=== PATIENT | male | born 1940 | race Caucasian/White ===

== ENCOUNTER 2018-09-28 13:28 | Emergency (ER) | payer MEDICARE, BC ==
[2018-09-28 15:15] LABS: ANION GAP 13.7; CHLORIDE,CL 105 mmol/L (101-111); SODIUM,NA 139 mmol/L (135-145)
[2018-09-28 17:23] VITALS: BP 142/82
--- NOTE | 2018-09-28 21:25 | EDM.PDOC ---
ED HPI GENERAL MEDICAL PROBLEM - General Chief Complaint: Respiratory Problem Stated Complaint: RESPIRATORY PROBLEMS Time Seen by Provider: 09/28/18 14:00 - History of Present Illness INITIAL COMMENTS - FREE TEXT/NARRATIVE: 78 year old male with hx of COPD, stents, pacer, presents with SOB x 1 month with worsening over the last week. No fevers, chills. "Im fine if I am sitting and not SOB; but as soon as I walk I get very SOB". Last night had small bout of CP when he was walking accompanied by SOB; then sat down rested and it went away. No CP since. Hx of colonoscopy with polyp removal 2 yrs ago. He has been given blood for anemia and is on iron. Dark stools which he felt was from the iron. Dr. 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 - Related Data Allergies Allergy/AdvReac Type Severity Reaction Status Date / Time No Known Allergies Allergy Verified 09/28/18 13:59 Home Meds: Home Meds Nitroglycerin [Nitrostat] 1 tab SL ASDIRECTED PRN 07/22/15 [History] Simvastatin 1 tab PO DAILY 07/22/15 [History] Albuterol [Ventolin HFA] 2 puff INH ASDIRECTED PRN 09/28/18 [History] Apixaban [Eliquis] 2.5 mg PO BID 09/28/18 [History] Aspirin [Ecotrin] 81 mg PO DAILY 09/28/18 [History] Bumetanide 2 mg PO DAILY 09/28/18 [History] DULoxetine [Cymbalta] 30 mg PO DAILY 09/28/18 [History] Fluticasone/Umeclidin/Vilanter [Trelegy Ellipta 100-62.5-25] 1 puff INH DAILY [History] Metoprolol Tartrate 25 mg PO BID 09/28/18 [History] Montelukast [Singulair] 5 mg PO DAILY 09/28/18 [History] Omeprazole 20 mg PO DAILY 09/28/18 [History] Potassium Chloride 20 meq PO BID 09/28/18 [History] Past Medical History HEENT History: Reports: None, Other (See Below) Other HEENT History: chronic otitis media R) ear Cardiovascular History: Reports: CAD, High Cholesterol, Hypertension, Pacemaker , Stents Other Cardiovascular History: Sick sinus syndrome Respiratory History: Reports: None Gastrointestinal History: Reports: Colon Polyp, GI Bleed Other Gastrointestinal History: Guillian Tsaile syndrome, duodenal ulcer Genitourinary History: Reports: None Musculoskeletal History: Reports: None, Arthritis, Back Pain, Chronic, Osteoarthritis Neurological History: Reports: Head Trauma Other Neuro History: spinal stenosis of lumbar region. spinal stenosis of thoracic region Psychiatric History: Reports: None Endocrine/Metabolic History: Reports: None Hematologic History: Reports: Anemia Immunologic History: Reports: None Oncologic (Cancer) History: Reports: None Dermatologic History: Reports: None - Infectious Disease History Infectious Disease History: Reports: Chicken Pox - Past Surgical History Head Surgeries/Procedures: Reports: None HEENT Surgical History: Reports: Other (See Below) Cardiovascular Surgical History: Reports: Carotid Stents, Pacer Musculoskeletal Surgical History: Reports: Knee Replacement Social & Family History - Family History Family Medical History: Noncontributory - Tobacco Use Smoking Status *Q: Former Smoker Years of Tobacco use: 50 Packs/Tins Daily: 0.5 Used Tobacco, but Quit: Yes Month/Year Tobacco Last Used: may Second Hand Smoke Exposure: No - Caffeine Use Caffeine Use: Reports: Coffee, Soda - Recreational Drug Use Recreational Drug Use: No - Living Situation & Occupation Living situation: Reports: , with Spouse Occupation: Retired ED ROS GENERAL - Review of Systems Review Of Systems: ROS reveals no pertinent complaints other than HPI. Respiratory: Reports: Shortness of Breath, Other (Mild cough; no signs of infection or sinus congestion. ) ED EXAM, GENERAL - Physical Exam Exam: See Below Exam Limited By: No Limitations General Appearance: Alert, WD/WN, No Apparent Distress Respiratory/Chest: Other (Decrease lungs sounds on the left base) Cardiovascular: Normal Peripheral Pulses, Regular Rate, Rhythm, No Edema, No Murmur Peripheral Pulses: 3+: Radial (L), Radial (R) GI/Abdominal: Normal Bowel Sounds, Soft, Non-Tender, No Organomegaly, No Distention, Other (No abdominal pain with palpation) Extremities: Normal Inspection, Normal Range of Motion, Non-Tender, No Pedal Edema Neurological: Alert, Oriented Skin Exam: Warm, Dry, Intact, Normal Color, No Rash Lymphatic: No Adenopathy EKG INTERPRETATION Rhythm: NSR (SR 1 degree AVB) Course - Vital Signs Text/Narrative:: cbc - HGB 6.2 and HCT 21.2 CMP nml except creat 1.5 UA negative Troponin Neg + rectal Hemoccult Dark stool Considering his sob, anemia and dark stools discussed with His PCP Dr. Noble whom came to see patient in the ER. Dr. 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 called and discussed with [facility] and accepting hospitalist there is Dr. Alberto. Patient refuses EMS transfer and will go by private vehicle by his family. VSS are stable for transfer. Last Recorded V/S: Last Vital Signs Temp 36.6 C 09/28/18 17:21 Pulse 83 09/28/18 17:21 Resp 16 09/28/18 17:21 BP 142/82 H 09/28/18 17:21 Pulse Ox 96 09/28/18 17:21 - Orders/Labs/Meds Orders: Active Orders 24 hr Category Date Time Status EKG 12 Lead [EKG Documentation Completion] [RC] STAT Care 09/28/18 14:47 Active Chest 2V [CR] Urgent Exams 09/28/18 14:38 Taken Labs: Laboratory Tests 09/28/18 09/28/18 09/28/18 Range/Units 14:47 14:47 14:47 WBC 6.0 (5.0-10.0) 10^3/uL RBC 2.00 L (4.6-6.2) 10^6/uL Hgb 6.2 L* D (14.0-18.0) g/dL Hct 21.2 L (40.0-54.0) % MCV 106.0 H D (80-100) fL MCH 31.0 (27.0-34.0) pg MCHC 29.2 L (33.0-35.0) g/dL Plt Count 219 D (150-450) 10^3/uL Neut % (Auto) 64.8 (42.2-75.2) % Lymph % (Auto) 20.3 L (20.5-50.1) % [place] % (Auto) 12.3 H (2-8) % Eos % (Auto) 2.3 (1.0-3.0) % Baso % (Auto) 0.3 (0.0-1.0) % Sodium 139 (135-145) mmol/L Potassium 3.7 (3.6-5.0) mmol/L Chloride 105 (101-111) mmol/L Carbon Dioxide 24.0 (21.0-31.0) mmol/L Anion Gap 13.7 BUN 44 H D (7-18) mg/dL Creatinine 1.5 H (0.6-1.3) mg/dL Est Cr Clr Drug Dosing 37.33 mL/min Estimated GFR (MDRD) 45 BUN/Creatinine Ratio 29.33 Glucose 99 (74-105) mg/dL Calcium 8.1 L (8.4-10.2) mg/dl Total Bilirubin 1.5 H (0.2-1.0) mg/dL AST 21 (10-42) IU/L ALT 15 (10-60) IU/L Alkaline Phosphatase 54 (42-121) IU/L Troponin I < 0.02 (0.00-0.02) ng/ml B-Natriuretic Peptide (0-100) pg/ml Total Protein 6.0 L (6.7-8.2) g/dl Albumin 3.1 L (3.2-5.5) g/dl Globulin 2.9 Albumin/Globulin Ratio 1.07 Urine Color (YELLOW) Urine Appearance (CLEAR) Urine pH (5.0-9.0) Ur Specific [place] (1.005-1.030) Urine Protein (NEGATIVE) Urine Glucose (UA) (NEGATIVE) Urine Ketones (NEGATIVE) Urine Occult Blood (NEGATIVE) Urine Nitrite (NEGATIVE) Urine Bilirubin (NEGATIVE) Urine Urobilinogen (0.2-1.0) mg/dL Ur Leukocyte Esterase (NEGATIVE) Blood Type A POSITIVE Gel Antibody Screen Negative 09/28/18 09/28/18 Range/Units 15:05 16:30 WBC (5.0-10.0) 10^3/uL RBC (4.6-6.2) 10^6/uL Hgb (14.0-18.0) g/dL Hct (40.0-54.0) % MCV (80-100) fL MCH (27.0-34.0) pg MCHC (33.0-35.0) g/dL Plt Count (150-450) 10^3/uL Neut % (Auto) (42.2-75.2) % Lymph % (Auto) (20.5-50.1) % [place] % (Auto) (2-8) % Eos % (Auto) (1.0-3.0) % Baso % (Auto) (0.0-1.0) % Sodium (135-145) mmol/L Potassium (3.6-5.0) mmol/L Chloride (101-111) mmol/L Carbon Dioxide (21.0-31.0) mmol/L Anion Gap BUN (7-18) mg/dL Creatinine (0.6-1.3) mg/dL Est Cr Clr Drug Dosing mL/min Estimated GFR (MDRD) BUN/Creatinine Ratio Glucose (74-105) mg/dL Calcium (8.4-10.2) mg/dl Total Bilirubin (0.2-1.0) mg/dL AST (10-42) IU/L ALT (10-60) IU/L Alkaline Phosphatase (42-121) IU/L Troponin I (0.00-0.02) ng/ml B-Natriuretic Peptide 550 H (0-100) pg/ml Total Protein (6.7-8.2) g/dl Albumin (3.2-5.5) g/dl Globulin Albumin/Globulin Ratio Urine Color Yellow (YELLOW) Urine Appearance Clear (CLEAR) Urine pH 5.5 (5.0-9.0) Ur Specific [place] 1.015 (1.005-1.030) Urine Protein Negative (NEGATIVE) Urine Glucose (UA) Negative (NEGATIVE) Urine Ketones Negative (NEGATIVE) Urine Occult Blood Negative (NEGATIVE) Urine Nitrite Negative (NEGATIVE) Urine Bilirubin Negative (NEGATIVE) Urine Urobilinogen 1.0 (0.2-1.0) mg/dL Ur Leukocyte Esterase Negative (NEGATIVE) Blood Type Gel Antibody Screen - Radiology Interpretation Free Text/Narrative:: Xray small left pleural effusion. Departure - Departure Time of Disposition: 18:00 Disposition: DC/Tfer to Acute Hospital 02 Condition: Fair Clinical Impression: Anemia, Dark stools, Occult blood in stools, Short of breath on exertion, History of coronary artery disease, History of COPD - Discharge Information *PRESCRIPTION DRUG MONITORING PROGRAM REVIEWED*: Not Applicable *COPY OF PRESCRIPTION DRUG MONITORING REPORT IN PATIENT PRABHA: Not Applicable Referrals: PCP,None [Primary Care Provider] - Forms: ED Department Discharge - My Orders Last 24 Hours: My Active Orders 09/28/18 14:38 Chest 2V [CR] Urgent 09/28/18 14:47 EKG 12 Lead [EKG Documentation Completion] [RC] STAT - Assessment/Plan Last 24 Hours: My Active Orders 09/28/18 14:38 Chest 2V [CR] Urgent 09/28/18 14:47 EKG 12 Lead [EKG Documentation Completion] [RC] STAT
== END 2018-09-28 17:53 ==
LOC: DL.ED 13:28
DX: K92.1 Melena (principal); D64.9 Anemia, unspecified; J44.9 Chronic obstructive pulmonary disease, unspecified; Z79.899 Other long term (current) drug therapy; Z79.82 Long term (current) use of aspirin; Z79.01 Long term (current) use of anticoagulants; I25.10 Atherosclerotic heart disease of native coronary artery without angina pectoris; E78.00 Pure hypercholesterolemia, unspecified; I10 Essential (primary) hypertension; Z95.0 Presence of cardiac pacemaker; Z95.5 Presence of coronary angioplasty implant and graft; Z87.891 Personal history of nicotine dependence
CPT/HCPCS: 36415; 71046; 80053; 81003; 82272; 83880; 84484; 85025; 86850; 86900; 86901; 93005; 99285-25

== ENCOUNTER 2021-07-20 06:55 | Day surgery (SDC) | payer MEDICARE, BC ==
[2021-07-20] MEDS ORDERED: Dexamethasone 4 MG/ML SDV IV ONE (06:56)
[2021-07-20] MEDS ORDERED: Sodium Chloride 0.9% 10 ML Syringe IV ONE (06:56)
[2021-07-20] MEDS ORDERED: Midazolam 1 MG/ML 2 ML SDV IV ONE (06:56)
[2021-07-20] MEDS ORDERED: Ondansetron 4 MG/2 ML SDV IVPUSH PRN (07:00)
[2021-07-20] MEDS ORDERED: Proparacaine 0.5% Ophth Soln 15 ML Bottle EYELF ONE (07:00)
[2021-07-20] MEDS ORDERED: Acetaminophen 325 MG Tab PO PRN (07:00)
[2021-07-20] MEDS ORDERED: Acetaminophen/Codeine 300-30 MG Tab PO PRN (07:00)
[2021-07-20] MEDS ORDERED: Povidone-Iodine 5% Sterile Ophth Soln 30 ML Bottle EYELF ONE ×2 (07:00→08:22)
[2021-07-20] MEDS ORDERED: Tropicamide 1% Ophth Soln 15 ML Bottle EYELF ONE (07:00)
[2021-07-20] MEDS ORDERED: Moxifloxacin 0.5% Ophth Soln 3 ML Bottle EYELF ONE (07:00)
[2021-07-20] MEDS ORDERED: Phenylephrine 10% Ophth Soln 5 ML Bot EYELF ONE (07:00)
[2021-07-20] MEDS ORDERED: Timolol Maleate 0.5% Ophth Soln 5 ML Bottle EYELF ONE (07:00)
[2021-07-20] MEDS ORDERED: Cataract Ophth Solution EYELF ONE (07:00)
[2021-07-20] MEDS ORDERED: Sodium Chloride 0.9% 10 ML Syringe FLUSH PRN (07:00)
[2021-07-20] MEDS ORDERED: Lidocaine 1% 30 ML SDV ONE (08:21)
[2021-07-20] MEDS ORDERED: Tetracaine HCl/PF 0.5% 4 ML Bottle EYELF ONE (08:21)
[2021-07-20] MEDS ORDERED: Apraclonidine 0.5% Ophth Soln 5 ML Bot EYELF ONE (08:22)
[2021-07-20] MEDS ORDERED: Diclofenac Sodium 0.1% Ophth Soln 5 ML Bottle EYELF ONE (08:23)
[2021-07-20] MEDS ORDERED: Dexamethasone/Neomycin/Polymyxin B Ophth Oint 3.5 GM Tube EYELF ONE (08:23)
[2021-07-20] MEDS ORDERED: Vancomycin 500 MG SDV EYELF ONE (08:24)
[2021-07-20] MEDS ORDERED: Chondroitin Sulfate/Hyaluronate Sodium Ophth Inj 0.75 ML Syringe EYELF ONE (08:24)
[2021-07-20] MEDS ORDERED: Balanced Salt Solution Ophth Irrig 500 ML Bottle IOCULAR ONE (08:24)
[2021-07-20 09:19] VITALS: BP 114/55; PULSE 86
== END 2021-07-20 09:33 | disposition home or self-care (01) ==
LOC: DL.SDS 06:55
PROVIDERS: ATTEND Ophthalmology
DX: H25.812 Combined forms of age-related cataract, left eye (principal); I25.10 Atherosclerotic heart disease of native coronary artery without angina pectoris; E53.8 Deficiency of other specified B group vitamins; I10 Essential (primary) hypertension; E78.5 Hyperlipidemia, unspecified; J44.9 Chronic obstructive pulmonary disease, unspecified; G47.33 Obstructive sleep apnea (adult) (pediatric); Z98.890 Other specified postprocedural states; Z79.899 Other long term (current) drug therapy; Z79.82 Long term (current) use of aspirin
CPT/HCPCS: 00142; A9270-GY; J1100; J2250; J3370; J3490; V2632

== ENCOUNTER 2021-08-03 06:49 | Day surgery (SDC) | payer MEDICARE, BC ==
[2021-08-03] MEDS ORDERED: Dexamethasone 4 MG/ML SDV IV ONE (06:50)
[2021-08-03] MEDS ORDERED: Midazolam 1 MG/ML 2 ML SDV IV ONE (06:50)
[2021-08-03] MEDS ORDERED: Povidone-Iodine 5% Sterile Ophth Soln 30 ML Bottle EYERT ONE ×2 (07:00→08:35)
[2021-08-03] MEDS ORDERED: Proparacaine 0.5% Ophth Soln 15 ML Bottle EYERT ONE (07:00)
[2021-08-03] MEDS ORDERED: Moxifloxacin 0.5% Ophth Soln 3 ML Bottle EYERT ONE (07:00)
[2021-08-03] MEDS ORDERED: Phenylephrine 10% Ophth Soln 5 ML Bot EYERT ONE (07:00)
[2021-08-03] MEDS ORDERED: Tropicamide 1% Ophth Soln 15 ML Bottle EYERT ONE (07:00)
[2021-08-03] MEDS ORDERED: Timolol Maleate 0.5% Ophth Soln 5 ML Bottle EYERT ONE (07:00)
[2021-08-03] MEDS ORDERED: Acetaminophen 325 MG Tab PO PRN (07:00)
[2021-08-03] MEDS ORDERED: Sodium Chloride 0.9% 10 ML Syringe FLUSH PRN (07:00)
[2021-08-03] MEDS ORDERED: Acetaminophen/Codeine 300-30 MG Tab PO PRN (07:00)
[2021-08-03] MEDS ORDERED: Ondansetron 4 MG/2 ML SDV IVPUSH PRN (07:00)
[2021-08-03] MEDS ORDERED: Cataract Ophth Solution EYERT ONE (07:00)
[2021-08-03] MEDS ORDERED: Lidocaine 1% 30 ML SDV ONE (08:35)
[2021-08-03] MEDS ORDERED: Tetracaine HCl/PF 0.5% 4 ML Bottle EYERT ONE (08:35)
[2021-08-03] MEDS ORDERED: Apraclonidine 0.5% Ophth Soln 5 ML Bot EYERT ONE (08:35)
[2021-08-03] MEDS ORDERED: Diclofenac Sodium 0.1% Ophth Soln 5 ML Bottle EYERT ONE (08:36)
[2021-08-03] MEDS ORDERED: Vancomycin 500 MG SDV EYERT ONE (08:36)
[2021-08-03] MEDS ORDERED: Balanced Salt Solution Ophth Irrig 500 ML Bottle IOCULAR ONE (08:36)
[2021-08-03] MEDS ORDERED: Chondroitin Sulfate/Hyaluronate Sodium Ophth Inj 0.75 ML Syringe EYERT ONE (08:36)
[2021-08-03] MEDS ORDERED: Dexamethasone/Neomycin/Polymyxin B Ophth Oint 3.5 GM Tube EYERT ONE (08:36)
[2021-08-03 09:21] VITALS: BP 140/82; PULSE 70
== END 2021-08-03 09:35 | disposition home or self-care (01) ==
LOC: DL.SDS 06:49
PROVIDERS: ATTEND Ophthalmology
DX: H25.811 Combined forms of age-related cataract, right eye (principal); I10 Essential (primary) hypertension; I25.10 Atherosclerotic heart disease of native coronary artery without angina pectoris; E78.5 Hyperlipidemia, unspecified; J44.9 Chronic obstructive pulmonary disease, unspecified; G47.33 Obstructive sleep apnea (adult) (pediatric); Z95.5 Presence of coronary angioplasty implant and graft; Z98.890 Other specified postprocedural states; Z79.82 Long term (current) use of aspirin; Z79.899 Other long term (current) drug therapy
CPT/HCPCS: 66984; A9270; J1100; J2250; J3370; J3490; V2632; 00142

== ENCOUNTER 2023-05-12 00:58 | Emergency (ER) | payer MEDICARE, BC ==
[2023-05-12] MEDS ORDERED: Oxymetazoline 0.05% Nasal Spray 30 ML Bottle NAS ONE (01:04)
[2023-05-12] MEDS ORDERED: EPINEPHrine Nasal Soln 30 MG/30 ML Bottle NAS ONE (01:04)
[2023-05-12] MEDS ORDERED: Ondansetron 4 MG/2 ML SDV IVPUSH ONE (01:14)
[2023-05-12 01:21] LABS: BASOPHILS PERCENT AUTO 0.2 % (0.0-1.0); EOSINOPHILS PERCENT AUTO 1.4 % (1.0-3.0); HEMATOCRIT 33.3 % (40.0-54.0); HEMOGLOBIN 9.8 g/dL (14.0-18.0); LYMPHOCYTES PERCENT AUTO 24.8 % (20.5-50.1); MEAN CORPUSCULAR HEMOGLOBIN 29.3 pg (27.0-34.0); MEAN CORPUSCULAR HGB CONC 29.4 g/dL (33.0-35.0); MEAN CORPUSCULAR VOLUME 99.7 fL (80-100); MONOCYTES PERCENT AUTO 9.6 % (2-8); PLATELET COUNT,PLT 322 10^3/uL (150-450); RED BLOOD CELL COUNT 3.34 10^6/uL (4.6-6.2); WHITE BLOOD CELL COUNT,WBC 12.3 10^3/uL (5.0-10.0)
[2023-05-12] MEDS ORDERED: Tranexamic Acid 1,000 MG/10 ML Vial TOP ONE (01:21)
[2023-05-12 01:25] VITALS: BP 120/97; PULSE 93
[2023-05-12 01:39] LABS: INR 1.1 (0.9-1.2); PROTHROMBIN TIME 10.9 SEC (9.0-12.0); PTT,PARTIAL THROMBOPLSTIN TIME 29.2 SEC (22.0-34.0)
== END 2023-05-12 03:32 | disposition home or self-care (01) ==
LOC: DL.ED 00:58
DX: R04.0 Epistaxis (principal); I11.0 Hypertensive heart disease with heart failure; I50.9 Heart failure, unspecified; E78.00 Pure hypercholesterolemia, unspecified; I25.10 Atherosclerotic heart disease of native coronary artery without angina pectoris; I48.91 Unspecified atrial fibrillation; J44.9 Chronic obstructive pulmonary disease, unspecified; Z95.5 Presence of coronary angioplasty implant and graft; Z95.0 Presence of cardiac pacemaker; Z86.16 Personal history of COVID-19; Z79.899 Other long term (current) drug therapy; Z79.82 Long term (current) use of aspirin
CPT/HCPCS: 30901; 30905; 36415; 85025; 85610; 85730; 96374; 99283; 99283-25; A9270-GY; J2405; J3490

== ENCOUNTER 2023-05-14 17:30 | Emergency (ER) | payer MEDICARE, BC ==
[2023-05-14] MEDS ORDERED: Silver Nitrate Applicator Each TOP ONE (18:12)
[2023-05-14 18:17] VITALS: BP 104/70; PULSE 75
[2023-05-14] MEDS ORDERED: Silver Nitrate Applicator Each ONE (18:24)
== END 2023-05-14 18:41 | disposition home or self-care (01) ==
LOC: DL.ED 17:30
DX: R04.0 Epistaxis (principal); I11.0 Hypertensive heart disease with heart failure; I50.9 Heart failure, unspecified; I25.10 Atherosclerotic heart disease of native coronary artery without angina pectoris; E78.00 Pure hypercholesterolemia, unspecified; J44.9 Chronic obstructive pulmonary disease, unspecified; Z86.16 Personal history of COVID-19; Z79.899 Other long term (current) drug therapy; Z95.5 Presence of coronary angioplasty implant and graft; Z79.82 Long term (current) use of aspirin
CPT/HCPCS: 30901; 99282; 99283

== ENCOUNTER 2023-05-17 16:42 | Emergency (ER) | payer MEDICARE, BC ==
[2023-05-17 18:06] LABS: BASOPHILS PERCENT AUTO 0.1 % (0.0-1.0); EOSINOPHILS PERCENT AUTO 0.2 % (1.0-3.0); HEMATOCRIT 27.4 % (40.0-54.0); LYMPHOCYTES PERCENT AUTO 9.5 % (20.5-50.1); MEAN CORPUSCULAR HEMOGLOBIN 29.6 pg (27.0-34.0); MEAN CORPUSCULAR HGB CONC 29.2 g/dL (33.0-35.0); MEAN CORPUSCULAR VOLUME 101.5 fL (80-100); MONOCYTES PERCENT AUTO 9.9 % (2-8); NEUTROPHILS PERCENT AUTO 80.3 % (42.2-75.2); PLATELET COUNT,PLT 263 10^3/uL (150-450); WHITE BLOOD CELL COUNT,WBC 9.5 10^3/uL (5.0-10.0)
[2023-05-17 18:31] LABS: INR 1.1 (0.9-1.2); PROTHROMBIN TIME 11.1 SEC (9.0-12.0); PTT,PARTIAL THROMBOPLSTIN TIME 33.7 SEC (22.0-34.0)
[2023-05-17 20:55] VITALS: BP 122/71; PULSE 72
== END 2023-05-17 20:59 | disposition home or self-care (01) ==
LOC: DL.ED 16:42
DX: D62 Acute posthemorrhagic anemia (principal); I11.0 Hypertensive heart disease with heart failure; I50.9 Heart failure, unspecified; I25.10 Atherosclerotic heart disease of native coronary artery without angina pectoris; I48.91 Unspecified atrial fibrillation; E78.00 Pure hypercholesterolemia, unspecified; J44.9 Chronic obstructive pulmonary disease, unspecified; Z86.16 Personal history of COVID-19; Z95.5 Presence of coronary angioplasty implant and graft; Z90.49 Acquired absence of other specified parts of digestive tract; Z79.899 Other long term (current) drug therapy
CPT/HCPCS: 36415; 36430; 85025; 85610; 85730; 86850; 86900; 86901; 86920; 86922; 99284; P9016

== ENCOUNTER 2023-09-11 10:58 | Inpatient (IN) | payer MEDICARE, BC ==
[2023-09-11 11:41] LABS: BASOPHILS PERCENT AUTO 0.1 % (0.0-1.0); EOSINOPHILS PERCENT AUTO 1.1 % (1.0-3.0); HEMATOCRIT 39.7 % (40.0-54.0); HEMOGLOBIN 12.5 g/dL (14.0-18.0); LYMPHOCYTES PERCENT AUTO 11.1 % (20.5-50.1); MEAN CORPUSCULAR HEMOGLOBIN 33.7 pg (27.0-34.0); MEAN CORPUSCULAR HGB CONC 31.5 g/dL (33.0-35.0); NEUTROPHILS PERCENT AUTO 79.7 % (42.2-75.2); PLATELET COUNT,PLT 176 10^3/uL (150-450); RED BLOOD CELL COUNT 3.71 10^6/uL (4.6-6.2); WHITE BLOOD CELL COUNT,WBC 8.3 10^3/uL (5.0-10.0)
[2023-09-11] MEDS: Furosemide 40 MG/4 ML VIAL IVPUSH ONE (12:00)
[2023-09-11 12:02] LABS: ALBUMIN 2.6 g/dL (3.4-5.0); ANION GAP 12.9 mEq/L (7-13); BILIRUBIN TOTAL 1.2 mg/dL (0.2-1.0); BUN/CREATININE RATIO 16.5 (No establ ref range); C-REACTIVE PROTEIN 6.96 ng/dL (<=0.50); CALCIUM 8.7 mg/dL (8.5-10.1); CREATININE 1.82 mg/dL (0.70-1.30); EST CRCL DRUG DOSING (CG) 29.23 mL/min; MAGNESIUM 2.2 mg/dL (1.8-2.4); POTASSIUM,K 3.9 mmol/L (3.5-5.1); PROTEIN TOTAL,TP 7.4 g/dL (6.4-8.2)
[2023-09-11 12:03] LABS: A/G RATIO 0.54
[2023-09-11 12:07] LABS: LACTIC ACID 2.8 mmol/L (0.4-2.0)
[2023-09-11] MEDS: Sodium Chloride 0.9% 10 ML Syringe FLUSH PRN (12:13)
[2023-09-11 12:50] LABS: CORONAVIRUS COVID-19 NAA NEGATIVE (NEGATIVE); INFLUENZA A NAA NEGATIVE (NEGATIVE); INFLUENZA B NAA NEGATIVE (NEGATIVE)
[2023-09-11] MEDS ORDERED: Ondansetron 4 MG/2 ML SDV IVPUSH PRN (14:55)
[2023-09-11] MEDS ORDERED: Docusate Sodium 100 MG Cap PO PRN (14:55)
[2023-09-11] MEDS ORDERED: Acetaminophen 325 MG Tab PO PRN (14:55)
[2023-09-11] MEDS ORDERED: Acetaminophen/HYDROcodone 325-5 MG Tab PO PRN (14:55)
[2023-09-11] MEDS ORDERED: Albuterol/Ipratropium 3.0-0.5 MG/3 ML Neb Soln NEB PRN (14:55)
[2023-09-11] MEDS ORDERED: Bisacodyl 5 MG Tab PO PRN (14:55)
[2023-09-11] MEDS ORDERED: Albuterol 0.083% 2.5 MG/3 ML Neb Soln NEB PRN (14:55)
[2023-09-11] MEDS ORDERED: Ferrous Sulfate 325 MG Tab PO SCH (15:00)
[2023-09-11] MEDS ORDERED: Fluticasone NASAL Spray 16 GM Bottle SCH (15:00)
[2023-09-11] MEDS ORDERED: Nitroglycerin 0.4 MG Tab.SL SL SCH (15:00)
[2023-09-11] MEDS: Metolazone 2.5 MG Tab PO ONE ×2 (15:47→16:37)
[2023-09-11] MEDS: Albuterol 6.7 GM Inhaler INH SCH (16:36)
[2023-09-11] MEDS ORDERED: Sennosides/Docusate Sodium 50-8.6 MG Tab PO SCH (21:00)
[2023-09-11] MEDS ORDERED: Polyvinyl Alcohol 1.4% Ophth Soln 15 ML Bottle EYEBOTH PRN (21:00)
[2023-09-11] MEDS: Furosemide 40 MG/4 ML VIAL IVPUSH SCH (21:41)
[2023-09-11] MEDS: Arformoterol 15 MCG/2 ML Neb Soln INH SCH (21:41)
[2023-09-11] MEDS: Budesonide 0.5 MG/2 ML Neb Susp INH SCH (21:41)
[2023-09-11] MEDS: Gabapentin 300 MG Cap PO SCH (21:42)
[2023-09-11] MEDS: atorvaSTATin 10 MG Tab PO SCH (21:42)
[2023-09-12] MEDS: Sennosides/Docusate Sodium 50-8.6 MG Tab PO SCH (00:18)
[2023-09-12 06:18] LABS: BASOPHILS PERCENT AUTO 0.3 % (0.0-1.0); HEMATOCRIT 37.2 % (40.0-54.0); HEMOGLOBIN 11.2 g/dL (14.0-18.0); LYMPHOCYTES PERCENT AUTO 13.1 % (20.5-50.1); MEAN CORPUSCULAR HEMOGLOBIN 32.7 pg (27.0-34.0); MEAN CORPUSCULAR HGB CONC 30.1 g/dL (33.0-35.0); MEAN CORPUSCULAR VOLUME 108.8 fL (80-100); MONOCYTES PERCENT AUTO 10.8 % (2-8); NEUTROPHILS PERCENT AUTO 73.8 % (42.2-75.2); PLATELET COUNT,PLT 161 10^3/uL (150-450); RED BLOOD CELL COUNT 3.42 10^6/uL (4.6-6.2); WHITE BLOOD CELL COUNT,WBC 7.9 10^3/uL (5.0-10.0)
[2023-09-12 06:33] LABS: ANION GAP 6.5 mEq/L (7-13); CALCIUM 8.5 mg/dL (8.5-10.1); CREATININE 1.77 mg/dL (0.70-1.30); EST CRCL DRUG DOSING (CG) 27.02 mL/min; POTASSIUM,K 3.5 mmol/L (3.5-5.1)
[2023-09-12] MEDS: prednisoLONE Soln 15 MG/5 ML UD Cup PO SCH (08:11)
[2023-09-12] MEDS: Omeprazole 20 MG Cap.CR PO SCH (08:12)
[2023-09-12] MEDS: Potassium Chloride 10 MEQ Tab.ER PO SCH (08:12)
[2023-09-12] MEDS: Montelukast 10 MG Tab PO SCH (08:12)
[2023-09-12] MEDS: Aspirin 81 MG Tab.EC PO SCH (08:12)
[2023-09-12] MEDS: Metolazone 2.5 MG Tab PO SCH (08:12)
[2023-09-12] MEDS: Finasteride 5 MG Tab PO SCH (08:13)
[2023-09-12] MEDS: Metoprolol Tartrate 25 MG Tab PO SCH (08:13)
[2023-09-12] MEDS: Doxazosin 2 MG Tab PO SCH (08:13)
[2023-09-12] MEDS: Allopurinol 100 MG Tab PO SCH (08:13)
[2023-09-12] MEDS: Enoxaparin 30 MG/0.3 ML Syringe SUBCUT SCH (08:18)
[2023-09-12] MEDS ORDERED: Albuterol 6.7 GM Inhaler INH PRN (12:11)
[2023-09-13 06:32] LABS: BASOPHILS PERCENT AUTO 0.2 % (0.0-1.0); EOSINOPHILS PERCENT AUTO 2.4 % (1.0-3.0); HEMATOCRIT 36.7 % (40.0-54.0); HEMOGLOBIN 11.6 g/dL (14.0-18.0); LYMPHOCYTES PERCENT AUTO 17.3 % (20.5-50.1); MEAN CORPUSCULAR HEMOGLOBIN 33.8 pg (27.0-34.0); MEAN CORPUSCULAR HGB CONC 31.6 g/dL (33.0-35.0); MONOCYTES PERCENT AUTO 10.8 % (2-8); NEUTROPHILS PERCENT AUTO 69.3 % (42.2-75.2); PLATELET COUNT,PLT 160 10^3/uL (150-450); RED BLOOD CELL COUNT 3.43 10^6/uL (4.6-6.2); WHITE BLOOD CELL COUNT,WBC 6.7 10^3/uL (5.0-10.0)
[2023-09-13] MEDS: Budesonide 0.5 MG/2 ML Neb Susp INH SCH (06:33)
[2023-09-13] MEDS: Patient's Own Medication 1 Each NEB SCH (06:33)
[2023-09-13] MEDS: Arformoterol 15 MCG/2 ML Neb Soln INH SCH (06:33)
[2023-09-13 07:43] LABS: ANION GAP 6.2 mEq/L (7-13); CALCIUM 8.5 mg/dL (8.5-10.1); CREATININE 1.79 mg/dL (0.70-1.30); EST CRCL DRUG DOSING (CG) 26.72 mL/min; POTASSIUM,K 3.2 mmol/L (3.5-5.1)
[2023-09-13] MEDS: Potassium Chloride 10 MEQ Tab.ER PO SCH (09:23)
[2023-09-13] MEDS: Metoprolol Tartrate 25 MG Tab PO SCH ×2 (09:28→09:39)
[2023-09-13] MEDS: REVEFENACIN 175 MCG NEB SCH (09:39)
[2023-09-13] MEDS: Omeprazole 20 MG Cap.CR PO SCH (11:43)
[2023-09-13] MEDS: Metolazone 2.5 MG Tab PO SCH (14:38)
[2023-09-13] MEDS: Nystatin Topical Powder 60 GM Bottle TOP ONE (16:15)
[2023-09-13] MEDS: Menthol/Zinc Oxide Ointment 113 GM Tube TOP PRN (16:15)
[2023-09-13] MEDS: Nystatin Topical Powder 60 GM Bottle TOP SCH (21:37)
[2023-09-14 06:41] LABS: BASOPHILS PERCENT AUTO 0.1 % (0.0-1.0); EOSINOPHILS PERCENT AUTO 2.8 % (1.0-3.0); HEMATOCRIT 35.8 % (40.0-54.0); HEMOGLOBIN 11.6 g/dL (14.0-18.0); LYMPHOCYTES PERCENT AUTO 14.9 % (20.5-50.1); MEAN CORPUSCULAR HEMOGLOBIN 34.1 pg (27.0-34.0); MEAN CORPUSCULAR HGB CONC 32.4 g/dL (33.0-35.0); MEAN CORPUSCULAR VOLUME 105.3 fL (80-100); MONOCYTES PERCENT AUTO 10.2 % (2-8); PLATELET COUNT,PLT 176 10^3/uL (150-450); WHITE BLOOD CELL COUNT,WBC 8.3 10^3/uL (5.0-10.0)
[2023-09-14 06:44] LABS: ANION GAP 7.3 mEq/L (7-13); CALCIUM 8.3 mg/dL (8.5-10.1); CREATININE 1.86 mg/dL (0.70-1.30); EST CRCL DRUG DOSING (CG) 25.72 mL/min; POTASSIUM,K 3.3 mmol/L (3.5-5.1)
[2023-09-15 06:32] LABS: BASOPHILS PERCENT AUTO 0.2 % (0.0-1.0); EOSINOPHILS PERCENT AUTO 3.5 % (1.0-3.0); HEMATOCRIT 36.4 % (40.0-54.0); HEMOGLOBIN 11.8 g/dL (14.0-18.0); LYMPHOCYTES PERCENT AUTO 18.3 % (20.5-50.1); MEAN CORPUSCULAR HEMOGLOBIN 33.8 pg (27.0-34.0); MEAN CORPUSCULAR HGB CONC 32.4 g/dL (33.0-35.0); MEAN CORPUSCULAR VOLUME 104.3 fL (80-100); MONOCYTES PERCENT AUTO 13.8 % (2-8); NEUTROPHILS PERCENT AUTO 64.2 % (42.2-75.2); PLATELET COUNT,PLT 168 10^3/uL (150-450); RED BLOOD CELL COUNT 3.49 10^6/uL (4.6-6.2); WHITE BLOOD CELL COUNT,WBC 6.7 10^3/uL (5.0-10.0)
[2023-09-15 06:57] LABS: CALCIUM 8.4 mg/dL (8.5-10.1); CREATININE 1.7 mg/dL (0.70-1.30); EST CRCL DRUG DOSING (CG) 28.14 mL/min
[2023-09-15 07:50] VITALS: BP 116/64; PULSE 75
[2023-09-15] MEDS: Potassium Chloride 10 MEQ Tab.ER PO ONE ×2 (09:14→10:29)
== END 2023-09-15 13:30 | disposition home health service (06) | DRG 291 ==
LOC: DL.ED 10:58 → DL.MS 13:16
PROVIDERS: ADMIT Internal Medicine; ATTEND Internal Medicine
PROC: 5A09457 Assistance with Respiratory Ventilation, 24-96 Consecutive Hours, Continuous Positive Airway Pressure (ICD-10-PCS; principal; 2023-09-12)
DX: I11.0 Hypertensive heart disease with heart failure (principal); J96.21 Acute and chronic respiratory failure with hypoxia; I50.9 Heart failure, unspecified; I25.10 Atherosclerotic heart disease of native coronary artery without angina pectoris; E78.00 Pure hypercholesterolemia, unspecified; J44.9 Chronic obstructive pulmonary disease, unspecified; I48.91 Unspecified atrial fibrillation; M19.90 Unspecified osteoarthritis, unspecified site; G89.29 Other chronic pain; E66.01 Morbid (severe) obesity due to excess calories; M54.6 Pain in thoracic spine; G47.30 Sleep apnea, unspecified; M54.9 Dorsalgia, unspecified; Z95.5 Presence of coronary angioplasty implant and graft; Z88.8 Allergy status to other drugs, medicaments and biological substances; Z86.16 Personal history of COVID-19; Z68.35 Body mass index [BMI] 35.0-35.9, adult; Z98.49 Cataract extraction status, unspecified eye; Z86.010 Personal history of colon polyps; Z79.82 Long term (current) use of aspirin; Z79.899 Other long term (current) drug therapy; Z95.0 Presence of cardiac pacemaker
CPT/HCPCS: 0240U; 36415; 51702; 51798; 71045; 80048; 80053; 82607; 82947; 83605; 83735; 83880; 85025; 86140; 87040; 94640; 94660; 94664; 96374; 97110-GP; 97161-GP; 97165-GO; 97530-GO; 97530-GP; 99223; 99232; 99233; 99239; 99285; 99285-25; A9270-GY; J1650; J1940; J3490

== ENCOUNTER 2024-04-06 05:15 | Emergency (ER) | payer MEDICARE, BC ==
[2024-04-06 06:07] LABS: BASOPHILS PERCENT AUTO 0.1 % (0.0-1.0); EOSINOPHILS PERCENT AUTO 0.3 % (1.0-3.0); HEMATOCRIT 37.3 % (40.0-54.0); LYMPHOCYTES PERCENT AUTO 2.6 % (20.5-50.1); MEAN CORPUSCULAR HEMOGLOBIN 35.9 pg (27.0-34.0); MEAN CORPUSCULAR HGB CONC 32.2 g/dL (33.0-35.0); MEAN CORPUSCULAR VOLUME 111.7 fL (80-100); MONOCYTES PERCENT AUTO 5.2 % (2-8); NEUTROPHILS PERCENT AUTO 91.8 % (42.2-75.2); PLATELET COUNT,PLT 183 10^3/uL (150-450); RED BLOOD CELL COUNT 3.34 10^6/uL (4.6-6.2); WHITE BLOOD CELL COUNT,WBC 18.4 10^3/uL (5.0-10.0)
[2024-04-06 06:17] LABS: BICARBONATE,VENOUS 28 mmol/l (19-25); O2 DELIVERY DEVICE NASAL CANNULA; O2 SATURATION VENOUS 81.9 % (60-80); PCO2 VENOUS 59 mmHg (41-51); PH,VENOUS 7.31 (7.31-7.41); PO2 VENOUS 50 mmHg (35-42)
[2024-04-06 06:18] LABS: BASE EXCESS VENOUS 1.6 mmol/l ((-2)-(+3))
[2024-04-06 06:23] LABS: PROTHROMBIN TIME 10.8 SEC (9.0-12.0); PTT,PARTIAL THROMBOPLSTIN TIME 27.6 SEC (22.0-34.0)
[2024-04-06 06:24] LABS: ALBUMIN 2.3 g/dL (3.4-5.0); BILIRUBIN TOTAL 1.5 mg/dL (0.2-1.0); BUN/CREATININE RATIO 25.6 (No establ ref range); C-REACTIVE PROTEIN 10.67 ng/dL (<=0.50); CALCIUM 8.7 mg/dL (8.5-10.1); CREATININE 2.15 mg/dL (0.70-1.30); EST CRCL DRUG DOSING (CG) 23.08 mL/min; MAGNESIUM 2.1 mg/dL (1.8-2.4)
[2024-04-06 06:27] LABS: A/G RATIO 0.49
[2024-04-06] MEDS: Levofloxacin/Dextrose 5%-Water 750 MG in Premix Bag 1 BAG IV ONE (07:02)
[2024-04-06 07:32] VITALS: BP 101/71; PULSE 115
== END 2024-04-06 09:10 | disposition other institution (70) ==
LOC: DL.ED 05:15
DX: A41.9 Sepsis, unspecified organism (principal); R09.02 Hypoxemia; J90 Pleural effusion, not elsewhere classified; I11.0 Hypertensive heart disease with heart failure; I50.9 Heart failure, unspecified; M19.90 Unspecified osteoarthritis, unspecified site; E78.00 Pure hypercholesterolemia, unspecified; Z91.048 Other nonmedicinal substance allergy status; Z79.82 Long term (current) use of aspirin; Z79.899 Other long term (current) drug therapy; Z86.16 Personal history of COVID-19; Z90.49 Acquired absence of other specified parts of digestive tract
CPT/HCPCS: 36415; 71250; 80053; 82803; 83735; 83880; 84484; 85025; 85610; 85730; 86140; 87040; 87428; 96365; 99285; J1956

== ENCOUNTER 2024-07-04 17:43 | Emergency (ER) | payer MEDICARE, BC ==
[2024-07-04 18:07] VITALS: BP 106/61; PULSE 75
[2024-07-04 18:52] LABS: APPEARANCE,URINE CLEAR (CLEAR); BILIRUBIN,URINE NEGATIVE (NEGATIVE); COLOR,URINE YELLOW (YELLOW); GLUCOSE,URINE NEGATIVE (NEGATIVE); KETONES,URINE NEGATIVE (NEGATIVE); LEUKOCYTE ESTERASE,URINE NEGATIVE (NEGATIVE); NITRITE,URINE NEGATIVE (NEGATIVE); OCCULT BLOOD,URINE NEGATIVE (NEGATIVE); PROTEIN,URINE NEGATIVE (NEGATIVE)
[2024-07-04] MEDS ORDERED: Sodium Chloride 0.9% 10 ML Syringe FLUSH PRN (19:08)
[2024-07-04] MEDS: methylPREDNISolone Sodium Succinate 125 MG/2 ML SDV IVPUSH ONE (19:19)
[2024-07-04] MEDS: Albuterol/Ipratropium 3.0-0.5 MG/3 ML Neb Soln NEB ONE (19:19)
[2024-07-04 19:21] LABS: HEMATOCRIT 36.8 % (40.0-54.0); HEMOGLOBIN 11.9 g/dL (14.0-18.0); MEAN CORPUSCULAR HEMOGLOBIN 35.8 pg (27.0-34.0); MEAN CORPUSCULAR HGB CONC 32.3 g/dL (33.0-35.0); MEAN CORPUSCULAR VOLUME 110.8 fL (80-100); PLATELET COUNT,PLT 185 10^3/uL (150-450); RED BLOOD CELL COUNT 3.32 10^6/uL (4.6-6.2); WHITE BLOOD CELL COUNT,WBC 11.9 10^3/uL (5.0-10.0)
[2024-07-04 19:28] LABS: BASOPHILS PERCENT AUTO 0.1 % (0.0-1.0); EOSINOPHILS PERCENT AUTO 0.3 % (1.0-3.0); LYMPHOCYTES PERCENT AUTO 9.2 % (20.5-50.1); MONOCYTES PERCENT AUTO 7.4 % (2-8)
[2024-07-04 19:39] LABS: PROTHROMBIN TIME 10.4 SEC (9.0-12.0); PTT,PARTIAL THROMBOPLSTIN TIME 27.3 SEC (22.0-34.0)
[2024-07-04 19:48] LABS: LACTIC ACID 2.1 mmol/L (0.4-2.0)
[2024-07-04 19:51] LABS: ALBUMIN 2.6 g/dL (3.4-5.0); ANION GAP 12.4 mEq/L (7-13); BILIRUBIN TOTAL 1.1 mg/dL (0.2-1.0); BUN/CREATININE RATIO 28.2 (No establ ref range); C-REACTIVE PROTEIN 10.56 ng/dL (<=0.50); CALCIUM 9.7 mg/dL (8.5-10.1); CREATININE 2.16 mg/dL (0.70-1.30); EST CRCL DRUG DOSING (CG) 22.56 mL/min; POTASSIUM,K 5.4 mmol/L (3.5-5.1); PROTEIN TOTAL,TP 7.5 g/dL (6.4-8.2)
[2024-07-04 19:53] LABS: A/G RATIO 0.53
[2024-07-04 19:54] LABS: LYMPHOCYTES PERCENT MAN 10 % (20-50); MONOCYTES PERCENT MAN 8 % (2-8); SEG NEUTROPHILS PERCENT MAN 82 % (42-75)
[2024-07-04] MEDS: Doxycycline Monohydrate 100 MG Cap PO ONE (21:26)
[2024-07-04] MEDS: Take Home: Doxycycline 100 MG Cap, 4 Cap Pack PO ONE (21:26)
== END 2024-07-04 21:29 | disposition home or self-care (01) ==
LOC: DL.ED 17:43
DX: J18.9 Pneumonia, unspecified organism (principal); I11.0 Hypertensive heart disease with heart failure; I50.9 Heart failure, unspecified; I25.10 Atherosclerotic heart disease of native coronary artery without angina pectoris; E78.00 Pure hypercholesterolemia, unspecified; J44.9 Chronic obstructive pulmonary disease, unspecified; Z95.0 Presence of cardiac pacemaker; Z79.899 Other long term (current) drug therapy; Z79.82 Long term (current) use of aspirin; Z91.048 Other nonmedicinal substance allergy status
CPT/HCPCS: 36415; 80053; 81003; 83605; 83880; 85025; 85610; 85730; 86140; 87428; 96374; 99283; 99284; A9270; J2919; J7620-GY

== ENCOUNTER 2024-08-02 13:31 | Inpatient (IN) | payer MEDICARE, BC ==
[2024-08-02] MEDS ORDERED: Polyethylene Glycol 3350 Powder 17 GM Packet PO PRN (14:42)
[2024-08-02] MEDS ORDERED: Docusate Sodium 100 MG Cap PO PRN (14:42)
[2024-08-02] MEDS ORDERED: Ondansetron 4 MG/2 ML SDV IVPUSH PRN (14:42)
[2024-08-02] MEDS ORDERED: Sodium Chloride 0.9% 10 ML Syringe FLUSH PRN (14:42)
[2024-08-02] MEDS ORDERED: Melatonin 3 MG Tab PO PRN (14:42)
[2024-08-02 15:26] LABS: HEMATOCRIT 31.1 % (40.0-54.0); MEAN CORPUSCULAR HEMOGLOBIN 35.6 pg (27.0-34.0); MEAN CORPUSCULAR HGB CONC 32.2 g/dL (33.0-35.0); MEAN CORPUSCULAR VOLUME 110.7 fL (80-100); PLATELET COUNT,PLT 189 10^3/uL (150-450); RED BLOOD CELL COUNT 2.81 10^6/uL (4.6-6.2); WHITE BLOOD CELL COUNT,WBC 12.9 10^3/uL (5.0-10.0)
[2024-08-02 15:38] LABS: BASOPHILS PERCENT AUTO 0.1 % (0.0-1.0); EOSINOPHILS PERCENT AUTO 0.9 % (1.0-3.0); LYMPHOCYTES PERCENT AUTO 7.7 % (20.5-50.1); MONOCYTES PERCENT AUTO 6.8 % (2-8); NEUTROPHILS PERCENT AUTO 84.5 % (42.2-75.2)
[2024-08-02 15:46] LABS: PROTHROMBIN TIME 10.6 SEC (9.0-12.0); PTT,PARTIAL THROMBOPLSTIN TIME 27.4 SEC (22.0-34.0)
[2024-08-02 15:47] LABS: ALBUMIN 2.2 g/dL (3.4-5.0); BILIRUBIN TOTAL 0.8 mg/dL (0.2-1.0); BUN/CREATININE RATIO 26.7 (No establ ref range); CALCIUM 8.9 mg/dL (8.5-10.1); CREATININE 2.62 mg/dL (0.70-1.30); PROTEIN TOTAL,TP 6.7 g/dL (6.4-8.2)
[2024-08-02 15:50] LABS: ANION GAP 14.6 mEq/L (7-13); POTASSIUM,K 5.6 mmol/L (3.5-5.1)
[2024-08-02 15:52] LABS: A/G RATIO 0.49; EST CRCL DRUG DOSING (CG) 18.6 mL/min
[2024-08-02 15:57] LABS: LYMPHOCYTES PERCENT MAN 4 % (20-50); SEG NEUTROPHILS PERCENT MAN 86 % (42-75)
[2024-08-02 15:58] LABS: EOSINOPHILS PERCENT MAN 1 % (1-3); MONOCYTES PERCENT MAN 9 % (2-8)
[2024-08-02 16:02] LABS: HEMOGLOBIN A1C 6.1 % (<5.7)
[2024-08-02] MEDS: Acetaminophen 325 MG Tab PO PRN (16:10)
[2024-08-02 16:29] LABS: FOLIC ACID 11.8 ng/mL (8.6-58.9); TSH ULTRASENSITIVE 4.08 uIU/mL (0.36-3.74)
[2024-08-02] MEDS ORDERED: Lidocaine 5% 700 MG Patch TOP PRN (17:18)
[2024-08-02] MEDS ORDERED: Diclofenac Sodium 1% Gel 100 GM Tube TOP PRN (17:20)
[2024-08-02] MEDS: Arformoterol 15 MCG/2 ML Neb Soln INH SCH (17:37)
[2024-08-02] MEDS: Albuterol/Ipratropium 3.0-0.5 MG/3 ML Neb Soln NEB SCH (17:40)
[2024-08-02] MEDS: Budesonide 0.5 MG/2 ML Neb Susp INH SCH (17:40)
[2024-08-02 17:53] LABS: T4 FREE 1.17 ng/dL (0.76-1.46)
[2024-08-02] MEDS: methylPREDNISolone Sodium Succinate 40 MG/1 ML SDV IVPUSH SCH (18:19)
[2024-08-02] MEDS: Azithromycin 500 MG in Sodium Chloride 0.9% 250 ML IV SCH (18:29)
[2024-08-02] MEDS ORDERED: Ampicillin/Sulbactam Na 1.5 GM in Sodium Chloride 0.9% 100 ML IV SCH (19:00)
[2024-08-02] MEDS: Sodium Chloride 0.9% 250 ML IV SCH (20:32)
[2024-08-02] MEDS: Ampicillin/Sulbactam Na 1.5 GM in Sodium Chloride 0.9% 100 ML IV SCH (20:40)
[2024-08-02] MEDS: atorvaSTATin 10 MG Tab PO SCH (20:44)
[2024-08-02] MEDS: Docusate Sodium 100 MG Cap PO SCH (20:45)
[2024-08-02] MEDS: Gabapentin 300 MG Cap PO SCH (20:45)
[2024-08-02] MEDS: Acetaminophen/HYDROcodone 325-5 MG Tab PO PRN (20:46)
[2024-08-02] MEDS: guaiFENesin 600 MG Tab.ER PO SCH (20:46)
[2024-08-02] MEDS: Sodium Chloride 0.9% 10 ML Syringe FLUSH SCH (20:49)
[2024-08-02] MEDS ORDERED: Gabapentin 300 MG Cap PO SCH (21:00)
[2024-08-03] MEDS: Pantoprazole 40 MG Tab.CR PO SCH (05:33)
[2024-08-03 06:24] LABS: HEMATOCRIT 31.6 % (40.0-54.0); HEMOGLOBIN 10.1 g/dL (14.0-18.0); MEAN CORPUSCULAR HEMOGLOBIN 35.4 pg (27.0-34.0); MEAN CORPUSCULAR VOLUME 110.9 fL (80-100); PLATELET COUNT,PLT 175 10^3/uL (150-450); RED BLOOD CELL COUNT 2.85 10^6/uL (4.6-6.2); WHITE BLOOD CELL COUNT,WBC 8.8 10^3/uL (5.0-10.0)
[2024-08-03 06:34] LABS: BASOPHILS PERCENT AUTO 0.1 % (0.0-1.0); LYMPHOCYTES PERCENT AUTO 5.4 % (20.5-50.1); MONOCYTES PERCENT AUTO 0.6 % (2-8); NEUTROPHILS PERCENT AUTO 93.9 % (42.2-75.2)
[2024-08-03 06:52] LABS: LYMPHOCYTES PERCENT MAN 5 % (20-50); MONOCYTES PERCENT MAN 2 % (2-8); SEG NEUTROPHILS PERCENT MAN 93 % (42-75)
[2024-08-03 06:53] LABS: PERCENT FE SATURATION 20.2 % (20.0-50.0)
[2024-08-03 07:02] LABS: ALBUMIN 2.2 g/dL (3.4-5.0); ANION GAP 14.4 mEq/L (7-13); BILIRUBIN TOTAL 0.7 mg/dL (0.2-1.0); BUN/CREATININE RATIO 25.5 (No establ ref range); CALCIUM 8.8 mg/dL (8.5-10.1); CREATININE 2.59 mg/dL (0.70-1.30); EST CRCL DRUG DOSING (CG) 18.82 mL/min; MAGNESIUM 2.9 mg/dL (1.8-2.4); POTASSIUM,K 5.4 mmol/L (3.5-5.1); PROTEIN TOTAL,TP 6.8 g/dL (6.4-8.2)
[2024-08-03 07:04] LABS: A/G RATIO 0.48
[2024-08-03] MEDS: Arformoterol 15 MCG/2 ML Neb Soln INH SCH (07:20)
[2024-08-03] MEDS ORDERED: Non-Formulary Medication 1 Each (Omeprazole Magnesium [Prilosec Otc] 20 MG Tablet.Dr) PO SCH (09:00)
[2024-08-03] MEDS ORDERED: Metoprolol Tartrate 25 MG Tab PO SCH (09:00)
[2024-08-03] MEDS: Finasteride 5 MG Tab PO SCH (09:18)
[2024-08-03] MEDS: Montelukast 10 MG Tab PO SCH (09:19)
[2024-08-03] MEDS: Aspirin 81 MG Tab.EC PO SCH (09:20)
[2024-08-03] MEDS: Doxazosin 2 MG Tab PO SCH (09:20)
[2024-08-03] MEDS: Allopurinol 100 MG Tab PO SCH (09:20)
[2024-08-03] MEDS: Enoxaparin 30 MG/0.3 ML Syringe SUBCUT SCH (09:21)
[2024-08-03] MEDS: Metoprolol Succinate 25 MG Tab.ER PO SCH (09:21)
[2024-08-03] MEDS: REVEFENACIN 175 MCG/3 ML INH SCH (13:03)
[2024-08-03 19:15] LABS: APPEARANCE,URINE CLEAR (CLEAR); BILIRUBIN,URINE NEGATIVE (NEGATIVE); COLOR,URINE YELLOW (YELLOW); GLUCOSE,URINE NEGATIVE (NEGATIVE); KETONES,URINE NEGATIVE (NEGATIVE); LEUKOCYTE ESTERASE,URINE NEGATIVE (NEGATIVE); NITRITE,URINE NEGATIVE (NEGATIVE); OCCULT BLOOD,URINE NEGATIVE (NEGATIVE); PROTEIN,URINE NEGATIVE (NEGATIVE); UROBILINOGEN,URINE 0.2 mg/dL (0.2-1.0)
[2024-08-04 06:24] LABS: BASOPHILS PERCENT AUTO 0.1 % (0.0-1.0); HEMATOCRIT 29.3 % (40.0-54.0); HEMOGLOBIN 9.2 g/dL (14.0-18.0); LYMPHOCYTES PERCENT AUTO 4.5 % (20.5-50.1); MEAN CORPUSCULAR HEMOGLOBIN 35.1 pg (27.0-34.0); MEAN CORPUSCULAR HGB CONC 31.4 g/dL (33.0-35.0); MEAN CORPUSCULAR VOLUME 111.8 fL (80-100); MONOCYTES PERCENT AUTO 1.9 % (2-8); NEUTROPHILS PERCENT AUTO 93.5 % (42.2-75.2); PLATELET COUNT,PLT 192 10^3/uL (150-450); RED BLOOD CELL COUNT 2.62 10^6/uL (4.6-6.2); WHITE BLOOD CELL COUNT,WBC 11.9 10^3/uL (5.0-10.0)
[2024-08-04 06:54] LABS: ALBUMIN 2.1 g/dL (3.4-5.0); ANION GAP 13.4 mEq/L (7-13); BILIRUBIN TOTAL 0.6 mg/dL (0.2-1.0); BUN/CREATININE RATIO 28.3 (No establ ref range); CALCIUM 8.5 mg/dL (8.5-10.1); CREATININE 2.58 mg/dL (0.70-1.30); EST CRCL DRUG DOSING (CG) 18.89 mL/min; POTASSIUM,K 5.4 mmol/L (3.5-5.1); PROTEIN TOTAL,TP 6.4 g/dL (6.4-8.2)
[2024-08-04 07:01] LABS: A/G RATIO 0.49
[2024-08-04 08:11] LABS: RETICULOCYTE COUNT PERCENT 3 % (0.5-1.5)
[2024-08-04] MEDS: Non-Formulary Medication 1 Each (Alendronate [Fosamax] 70 MG/75 ML Bottle) PO SCH (09:39)
[2024-08-04] MEDS: methylPREDNISolone Sodium Succinate 40 MG/1 ML SDV IVPUSH SCH ×2 (13:36→21:56)
[2024-08-04] MEDS: Arformoterol 15 MCG/2 ML Neb Soln INH SCH (17:52)
[2024-08-04] MEDS ORDERED: Gabapentin 100 MG Cap PO SCH (21:40)
[2024-08-04] MEDS: Midodrine 5 MG Tab PO ONE (21:55)
[2024-08-04] MEDS: Gabapentin 100 MG Cap PO SCH (22:05)
[2024-08-05] MEDS: Gabapentin 300 MG Cap PO SCH (00:48)
[2024-08-05 06:15] LABS: HEMATOCRIT 30.1 % (40.0-54.0); HEMOGLOBIN 9.4 g/dL (14.0-18.0); LYMPHOCYTES PERCENT AUTO 4.9 % (20.5-50.1); MEAN CORPUSCULAR HEMOGLOBIN 35.7 pg (27.0-34.0); MEAN CORPUSCULAR HGB CONC 31.2 g/dL (33.0-35.0); MEAN CORPUSCULAR VOLUME 114.4 fL (80-100); MONOCYTES PERCENT AUTO 2.8 % (2-8); NEUTROPHILS PERCENT AUTO 92.2 % (42.2-75.2); PLATELET COUNT,PLT 179 10^3/uL (150-450); RED BLOOD CELL COUNT 2.63 10^6/uL (4.6-6.2); WHITE BLOOD CELL COUNT,WBC 11.7 10^3/uL (5.0-10.0)
[2024-08-05 06:23] LABS: BASOPHILS PERCENT AUTO 0.1 % (0.0-1.0)
[2024-08-05 06:33] LABS: ALBUMIN 2.2 g/dL (3.4-5.0); ANION GAP 10.5 mEq/L (7-13); BILIRUBIN TOTAL 0.5 mg/dL (0.2-1.0); BUN/CREATININE RATIO 31.8 (No establ ref range); CALCIUM 8.6 mg/dL (8.5-10.1); CREATININE 2.39 mg/dL (0.70-1.30); EST CRCL DRUG DOSING (CG) 20.39 mL/min; MAGNESIUM 3.2 mg/dL (1.8-2.4); POTASSIUM,K 4.5 mmol/L (3.5-5.1); PROTEIN TOTAL,TP 6.4 g/dL (6.4-8.2)
[2024-08-05 06:41] LABS: A/G RATIO 0.52
[2024-08-05 13:41] LABS: PERCENT FE SATURATION 35.2 % (20.0-50.0)
[2024-08-05 13:43] LABS: T4 FREE 0.71 ng/dL (0.76-1.46); TSH ULTRASENSITIVE 1.97 uIU/mL (0.36-3.74)
[2024-08-05] MEDS ORDERED: Sodium Chloride 0.9% 10 ML Syringe FLUSH PRN (13:54)
[2024-08-05] MEDS ORDERED: Pantoprazole 40 MG in Sodium Chloride 0.9% 100 ML IV SCH (14:00)
[2024-08-05] MEDS ORDERED: Heparin Sodium 5,000 Units/ML Vial SUBCUT SCH (14:00)
[2024-08-05 14:02] LABS: FOLIC ACID 9.6 ng/mL (8.6-58.9)
[2024-08-05 14:13] LABS: APPEARANCE,URINE SLIGHTLY CLOUDY (CLEAR); BILIRUBIN,URINE NEGATIVE (NEGATIVE); COLOR,URINE YELLOW (YELLOW); GLUCOSE,URINE NEGATIVE (NEGATIVE); KETONES,URINE NEGATIVE (NEGATIVE); LEUKOCYTE ESTERASE,URINE SMALL (NEGATIVE); NITRITE,URINE NEGATIVE (NEGATIVE); OCCULT BLOOD,URINE LARGE (NEGATIVE); PH,URINE 5.5 (5.0-9.0); PROTEIN,URINE 30 (NEGATIVE); UROBILINOGEN,URINE 0.2 mg/dL (0.2-1.0)
[2024-08-05] MEDS: Pantoprazole 40 MG Vial IVPUSH ONE (14:15)
[2024-08-05 14:24] LABS: RBC,URINE 40-50 /HPF (0-5)
[2024-08-05 14:25] LABS: BACTERIA,URINE FEW /HPF (0-FEW/HPF); EPITHELIAL CELLS,URINE FEW /HPF (NOT SEEN)
[2024-08-05 14:26] LABS: CORONAVIRUS COVID-19 NAA NEGATIVE (NEGATIVE); INFLUENZA A NAA NEGATIVE (NEGATIVE); INFLUENZA B NAA NEGATIVE (NEGATIVE)
[2024-08-05] MEDS: Furosemide 40 MG/4 ML VIAL IVPUSH ONE (15:06)
[2024-08-05] MEDS: Cefdinir 250 MG/5 ML Susp 100 ML Bottle PO SCH (16:17)
[2024-08-05] MEDS ORDERED: Sodium Chloride 0.9% 10 ML Syringe FLUSH SCH (21:00)
[2024-08-06 06:32] LABS: HEMATOCRIT 30.6 % (40.0-54.0); HEMOGLOBIN 9.5 g/dL (14.0-18.0); MEAN CORPUSCULAR HEMOGLOBIN 35.8 pg (27.0-34.0); MEAN CORPUSCULAR VOLUME 115.5 fL (80-100); PLATELET COUNT,PLT 156 10^3/uL (150-450); RED BLOOD CELL COUNT 2.65 10^6/uL (4.6-6.2); WHITE BLOOD CELL COUNT,WBC 13.4 10^3/uL (5.0-10.0)
[2024-08-06 06:44] LABS: CALCIUM 8.8 mg/dL (8.5-10.1); CREATININE 2.44 mg/dL (0.70-1.30); EST CRCL DRUG DOSING (CG) 19.97 mL/min; MAGNESIUM 3.2 mg/dL (1.8-2.4)
[2024-08-06 06:50] LABS: BASOPHILS PERCENT AUTO 0.1 % (0.0-1.0); LYMPHOCYTES PERCENT AUTO 4.8 % (20.5-50.1); MONOCYTES PERCENT AUTO 6.3 % (2-8); NEUTROPHILS PERCENT AUTO 88.8 % (42.2-75.2)
[2024-08-06 07:35] LABS: ANISOCYTOSIS 1+ SLIGHT; LYMPHOCYTES PERCENT MAN 3 % (20-50); MONOCYTES PERCENT MAN 5 % (2-8); MYELOCYTE PERCENT MAN 1; PLATELET COUNT ESTIMATE ADEQUATE; SEG NEUTROPHILS PERCENT MAN 91 % (42-75)
[2024-08-06] MEDS: Nystatin Topical Powder 60 GM Bottle TOP SCH (13:34)
[2024-08-06] MEDS: Cefdinir 250 MG/5 ML Susp 100 ML Bottle PO SCH (16:12)
[2024-08-06] MEDS: Sennosides/Docusate Sodium 50-8.6 MG Tab PO PRN (20:06)
[2024-08-06] MEDS: Pantoprazole 40 MG Tab.CR PO SCH (20:07)
[2024-08-07 06:28] LABS: EOSINOPHILS PERCENT AUTO 0.4 % (1.0-3.0); HEMATOCRIT 29.9 % (40.0-54.0); HEMOGLOBIN 9.1 g/dL (14.0-18.0); LYMPHOCYTES PERCENT AUTO 7.2 % (20.5-50.1); MEAN CORPUSCULAR HGB CONC 30.4 g/dL (33.0-35.0); MEAN CORPUSCULAR VOLUME 118.2 fL (80-100); MONOCYTES PERCENT AUTO 9.5 % (2-8); NEUTROPHILS PERCENT AUTO 82.9 % (42.2-75.2); PLATELET COUNT,PLT 145 10^3/uL (150-450); RED BLOOD CELL COUNT 2.53 10^6/uL (4.6-6.2); WHITE BLOOD CELL COUNT,WBC 10.9 10^3/uL (5.0-10.0)
[2024-08-07 06:48] LABS: ANION GAP 13.2 mEq/L (7-13); CALCIUM 8.7 mg/dL (8.5-10.1); CREATININE 2.12 mg/dL (0.70-1.30); EST CRCL DRUG DOSING (CG) 22.99 mL/min; POTASSIUM,K 4.2 mmol/L (3.5-5.1)
[2024-08-07] MEDS: acetaZOLAMIDE 500 MG Vial IVPUSH SCH (10:24)
[2024-08-07 10:37] LABS: ANION GAP 11.2 mEq/L (7-13); CALCIUM 8.8 mg/dL (8.5-10.1); CREATININE 2.19 mg/dL (0.70-1.30); EST CRCL DRUG DOSING (CG) 22.25 mL/min; POTASSIUM,K 4.2 mmol/L (3.5-5.1)
[2024-08-07] MEDS: Dextrose 5% in Water 1,000 ML IV SCH (10:37)
[2024-08-07] MEDS: Water For Injection, Sterile 10 ML ONE ×2 (11:22→21:03)
[2024-08-07 12:50] LABS: ANION GAP 13.3 mEq/L (7-13); CALCIUM 8.7 mg/dL (8.5-10.1); CREATININE 2.16 mg/dL (0.70-1.30); EST CRCL DRUG DOSING (CG) 22.56 mL/min; POTASSIUM,K 4.3 mmol/L (3.5-5.1)
[2024-08-07 14:40] LABS: ANION GAP 11.5 mEq/L (7-13); CALCIUM 8.6 mg/dL (8.5-10.1); CREATININE 2.12 mg/dL (0.70-1.30); EST CRCL DRUG DOSING (CG) 22.99 mL/min; POTASSIUM,K 4.5 mmol/L (3.5-5.1)
[2024-08-07] MEDS: Nystatin Topical Powder 60 GM Bottle TOP SCH (14:48)
[2024-08-07 17:11] LABS: ANION GAP 13.3 mEq/L (7-13); CALCIUM 8.6 mg/dL (8.5-10.1); CREATININE 2.05 mg/dL (0.70-1.30); EST CRCL DRUG DOSING (CG) 23.77 mL/min; POTASSIUM,K 4.3 mmol/L (3.5-5.1)
[2024-08-07 18:49] LABS: ANION GAP 10.9 mEq/L (7-13); CALCIUM 8.5 mg/dL (8.5-10.1); CREATININE 2.05 mg/dL (0.70-1.30); EST CRCL DRUG DOSING (CG) 23.77 mL/min; POTASSIUM,K 3.9 mmol/L (3.5-5.1)
[2024-08-07] MEDS ORDERED: acetaZOLAMIDE 500 MG Vial IVPUSH SCH (21:00)
[2024-08-08 05:46] LABS: MYCOPLASMA IGM 0.04 U/L (<=0.76)
[2024-08-08 06:50] LABS: ANION GAP 14.6 mEq/L (7-13); CALCIUM 8.5 mg/dL (8.5-10.1); CREATININE 1.94 mg/dL (0.70-1.30); EST CRCL DRUG DOSING (CG) 25.12 mL/min; MAGNESIUM 2.7 mg/dL (1.8-2.4); POTASSIUM,K 3.6 mmol/L (3.5-5.1)
[2024-08-08 06:51] LABS: HEMATOCRIT 28.5 % (40.0-54.0); HEMOGLOBIN 8.7 g/dL (14.0-18.0); MEAN CORPUSCULAR HEMOGLOBIN 36.6 pg (27.0-34.0); MEAN CORPUSCULAR HGB CONC 30.5 g/dL (33.0-35.0); MEAN CORPUSCULAR VOLUME 119.7 fL (80-100); PLATELET COUNT,PLT 141 10^3/uL (150-450); RED BLOOD CELL COUNT 2.38 10^6/uL (4.6-6.2); WHITE BLOOD CELL COUNT,WBC 14.3 10^3/uL (5.0-10.0)
[2024-08-08 07:00] LABS: BASOPHILS PERCENT AUTO 0.1 % (0.0-1.0); EOSINOPHILS PERCENT AUTO 1.3 % (1.0-3.0); LYMPHOCYTES PERCENT AUTO 7.6 % (20.5-50.1); MONOCYTES PERCENT AUTO 6.5 % (2-8); NEUTROPHILS PERCENT AUTO 84.5 % (42.2-75.2)
[2024-08-08 07:30] LABS: SEG NEUTROPHILS PERCENT MAN 86 % (42-75)
[2024-08-08 07:31] LABS: BAND PERCENT MAN 2 %; EOSINOPHILS PERCENT MAN 1 % (1-3); LYMPHOCYTES PERCENT MAN 6 % (20-50); MONOCYTES PERCENT MAN 5 % (2-8)
[2024-08-08 08:48] LABS: ANION GAP 13.5 mEq/L (7-13); CALCIUM 8.4 mg/dL (8.5-10.1); CREATININE 1.91 mg/dL (0.70-1.30); EST CRCL DRUG DOSING (CG) 25.52 mL/min; POTASSIUM,K 3.5 mmol/L (3.5-5.1)
[2024-08-08] MEDS: Tranexamic Acid 1,000 MG/10 ML Vial TOP ONE (09:52)
[2024-08-08 10:15] VITALS: BP 100/49; PULSE 98
== END 2024-08-08 10:30 | DRG 378 ==
LOC: DL.MS 13:31
PROVIDERS: ADMIT Student in an Organized Health Care Education/Training Program; ATTEND Internal Medicine
PROC: 0T9B70Z Drainage of Bladder with Drainage Device, Via Natural or Artificial Opening (ICD-10-PCS; 2024-08-02)
PROC: 5A09357 Assistance with Respiratory Ventilation, Less than 24 Consecutive Hours, Continuous Positive Airway Pressure (ICD-10-PCS; principal; 2024-08-07)
DX: K92.1 Melena (principal); E44.1 Mild protein-calorie malnutrition; E87.1 Hypo-osmolality and hyponatremia; I13.0 Hypertensive heart and chronic kidney disease with heart failure and stage 1 through stage 4 chronic kidney disease, or unspecified chronic kidney disease; N18.4 Chronic kidney disease, stage 4 (severe); N39.0 Urinary tract infection, site not specified; I50.32 Chronic diastolic (congestive) heart failure; S62.134A Nondisplaced fracture of capitate [os magnum] bone, right wrist, initial encounter for closed fracture; S62.001A Unspecified fracture of navicular [scaphoid] bone of right wrist, initial encounter for closed fracture; I48.91 Unspecified atrial fibrillation; I25.10 Atherosclerotic heart disease of native coronary artery without angina pectoris; H91.90 Unspecified hearing loss, unspecified ear; H54.7 Unspecified visual loss; E78.00 Pure hypercholesterolemia, unspecified; M10.9 Gout, unspecified; M19.90 Unspecified osteoarthritis, unspecified site; M06.9 Rheumatoid arthritis, unspecified; F41.9 Anxiety disorder, unspecified; Z96.649 Presence of unspecified artificial hip joint; Z96.659 Presence of unspecified artificial knee joint; E03.8 Other specified hypothyroidism; D53.9 Nutritional anemia, unspecified; E87.5 Hyperkalemia; E83.41 Hypermagnesemia; R73.03 Prediabetes; E88.09 Other disorders of plasma-protein metabolism, not elsewhere classified; I49.5 Sick sinus syndrome; G47.33 Obstructive sleep apnea (adult) (pediatric); E86.0 Dehydration; J44.9 Chronic obstructive pulmonary disease, unspecified; E78.5 Hyperlipidemia, unspecified; D63.1 Anemia in chronic kidney disease; W19.XXXA Unspecified fall, initial encounter; Z68.31 Body mass index [BMI] 31.0-31.9, adult; Z87.891 Personal history of nicotine dependence; Z79.51 Long term (current) use of inhaled steroids; Z79.82 Long term (current) use of aspirin; Z79.899 Other long term (current) drug therapy; Z79.52 Long term (current) use of systemic steroids; Z86.0100 Personal history of colon polyps, unspecified; Z95.0 Presence of cardiac pacemaker; Z86.16 Personal history of COVID-19; Z98.49 Cataract extraction status, unspecified eye; Z90.49 Acquired absence of other specified parts of digestive tract; Z95.5 Presence of coronary angioplasty implant and graft; Z86.73 Personal history of transient ischemic attack (TIA), and cerebral infarction without residual deficits; Z98.1 Arthrodesis status
CPT/HCPCS: 0240U; 36415; 51702; 71045; 73110; 73200; 80048; 80053; 81001; 81003; 82272; 82306; 82550; 82607; 82728; 82746; 82977; 83036; 83540; 83550; 83615; 83735; 83880; 84439; 84443; 84484; 85025; 85045; 85610; 85730; 86738; 86850; 86900; 86901; 87086; 93005; 93306; 94010; 94640; 97161; 97165; 97530; 93010; 99223; 99232; 99233; 99239; A9270-GY; J0295; J0456; J1120; J1650; J1940; J2470; J2919; J3490; J7050; J7070